=== PATIENT | female | born 1995 | race Two or more races ===

== ENCOUNTER 2017-03-21 15:11 | Inpatient (IN) | payer SELFPAY ==
[~2017-03-21] VITALS: Ht 152.4 cm; Wt 77.1 kg
[~2017-03-21 15:11] MED LIST: ceFAZolin 2GM PREMIX 2 GM/50 ML BAG IV ONE
[2017-03-21] MEDS ORDERED: IV RINGERS,LACTATED 1000ML 1,000 ML IV SCH ×2 (15:27→21:45)
[2017-03-21] MEDS ORDERED: OXYTOCIN 30 UNIT/500 ML PREMIX 500 ML IV PRN ×2 (15:30→18:30)
[2017-03-21] MEDS ORDERED: CITRIC ACID/SODIUM CITRATE 30 ML SOLUTION. PO ONE (15:30)
--- NOTE | 2017-03-21 16:01 | PDOC1 ---
OB - History Hx of Present Care: Good Care Ultrasounds: Normal mid trimester US Obstetrical Complications: None Medical Complications: None Past Family/Social History * Past Medical, Surgical, Family and Obstetric Histories reviewed from chart. Rubella: Immune RPR/VDRL: Negative GBS Status: Negative HBsAG: Negative OB - Chief Complaint & HPI Date of Admission: Date of Admission: Mar 21, 2017 at 15:11 Chief Complaint/History : 2 Para: 1 EGA: 39 Reason for admission: section Indication for : desires repeat Admission Nurse Assessment Rev: Yes Problems: OB - Admission Exam Physical Exam HEENT: Normal Heart: Regular Rate Lungs: Clear Abdomen: Gravid, Non tender, Soft Extremities: Edema Reflexes: Normal Cervical Dilatation: None Effacement: 0% Station: Ballotable Membranes: Intact Heart Rate: Normal Accelerations: Accelerations Present Decelerations: No decelerations Contractions on Admission: None Text A: 39 wks IUP Previous c/s ( unknown scar) P: Admit for repeat c/s. BERRY QUIROGA Jr, MD Mar 21, 2017 16:01
[2017-03-21 16:47] LABS: HEMATOCRIT 39.6 % (36.0-47.0); HEMOGLOBIN 13.2 g/dL (12.0-15.5); RED BLOOD COUNT 4.41 x10^6/uL (3.50-5.40); RED CELL DISTRIBUTION WIDTH 13.3 % (11.5-14.5); WHITE BLOOD COUNT 9.1 x10^3/uL (4.0-11.0)
[2017-03-21] MEDS ORDERED: fentaNYL PF VIAL 100 MCG/2 ML VIAL ONE (16:49)
[2017-03-21] MEDS ORDERED: ONDANSETRON PF 4 MG/2 ML VIAL. ONE (16:50)
[2017-03-21] MEDS ORDERED: OXYTOCIN 10 UNIT/ML VIAL. ONE ×2 (16:50→18:11)
[2017-03-21] MEDS ORDERED: PHENYLEPHRINE 10 MG/ML VIAL. ONE (16:50)
[2017-03-21] MEDS ORDERED: DEXAMETHASONE SOD PHOS 20 MG/5 ML VIAL. ONE (16:50)
[2017-03-21] MEDS ORDERED: METOCLOPRAMIDE HCL 10 MG/2 ML VIAL. ONE (16:50)
[2017-03-21] MEDS ORDERED: MORPHINE PF 5 MG/10 ML VIAL. ONE (16:50)
[2017-03-21] MEDS ORDERED: FAMOTIDINE 20 MG/2 ML VIAL ONE (16:50)
--- NOTE | 2017-03-21 18:28 | PDOC4 ---
OB Operative Note PRE OP DIAGNOSIS: Previoujs C- section POST OP DIAGNOSIS: Previoujs C- section OPERATION PERFORMED: R [facility] Surgeon Dr. Maldonado Anesthesia: Regional (Spinal) Blood Loss 700 ml Specimen placenta and infant OB Findings: Position (Vertex), Sex (Male), (8/9), Weight (pending) Complications none BERRY MALDONADO Jr, MD Mar 21, 2017 18:28
[2017-03-21] MEDS ORDERED: ONDANSETRON PF 4 MG/2 ML VIAL. IV PRN (18:30)
[2017-03-21] MEDS ORDERED: diphenhydrAMINE ORAL ELIXIR 12.5 MG/5 ML ML PO PRN (18:30)
[2017-03-21] MEDS ORDERED: KETOROLAC TROMETHAMINE 30 MG/ML INJ. IV PRN (18:30)
[2017-03-21] MEDS ORDERED: MAG HYDROX/ALUMINUM HYD/SIMETH 30 ML ORAL.SUSP PO PRN (18:30)
[2017-03-21] MEDS ORDERED: ZOLPIDEM 5 MG TABLET. PO PRN (18:30)
[2017-03-21] MEDS ORDERED: 0.9 % SODIUM CHLORIDE 10 ML DISP.SYRIN. IV PRN (18:30)
[2017-03-21] MEDS ORDERED: SIMETHICONE 80 MG TAB.CHEW PO PRN (18:30)
--- NOTE | 2017-03-21 20:53 | OP ---
DATE OF SURGERY: 03/21/2017 PREOPERATIVE DIAGNOSES: 1. A 39 weeks intrauterine . 2. Previous of unknown healing scar. POSTOPERATIVE DIAGNOSES: 1. A 39 weeks intrauterine . 2. Previous of unknown healing scar. PROCEDURE: Repeat low transverse section. SURGEON: Dr. Maldonado. ANESTHESIA: Spinal. ESTIMATED BLOOD LOSS: 800 mL. FINDINGS: Viable male infant, Apgars 8 and 9, weight pending. Three-vessel cord placenta delivered manually intact. SUMMARY: A 22-year-old 2, para 1 at 39 weeks presented for . The patient was counseled on risks, benefits and expectations and voiced clear seed. DESCRIPTION OF PROCEDURE: The patient was taken to surgery suite and placed in dorsal supine position where she was prepped with ChloraPrep and draped in sterile fashion. After adequate anesthesia, the old vertical skin scar was excised using the elliptical approach along with Allis clamps and Bovie cautery. Bovie cautery was then carried down to and through the fascia. The fascia was extended superiorly and inferiorly using Bovie cautery. The abdominal rectus muscles were dissected bluntly at the midline. Peritoneum was grasped with 2 hemostats and entered sharply at the midline. This incision was extended superiorly and inferiorly using Metzenbaum scissors. The Larry ring retractor was placed. Low transverse hysterotomy incision made with scalpel down to the amniotic sac. The hysterotomy incision was extended laterally, superiorly digitally. Amniotomy was performed with Allis clamp, which elicited a large amount of clear fluid. With the aid of fundal pressure, the infant's head was delivered in a smooth atraumatic manner. With additional fundal pressure, the anterior shoulder was delivered followed by the posterior shoulder. Rest of the male was delivered. was suctioned with bulb syringe orally and nasally, umbilical cord was clamped twice and cut. A viable male was handed to waiting nursing staff. Umbilical cord blood was then obtained. Three-vessel cord placenta was delivered manually intact. The uterus exteriorized, cleared of clot and debris with moist lap. Hysterotomy incision was reapproximated using 1-0 Vicryl suture in a running locked fashion. Two [id number] sutures were placed over the right apex of the hysterotomy incision for better hemostasis. Uterus palpated firm. Fallopian tubes and ovaries appeared normal bilaterally. Posterior cul-de-sac was cleared of clot and debris with moist lap. The uterus was returned to the abdomen. Pericolic gutters were cleared of clot and debris with a moist lap. Interceed was placed over in an inverted T-fashion over the hysterotomy incision. The Larry ring retractor was removed. The peritoneum was reapproximated using 1-0 Vicryl suture in running fashion. Fascia was reapproximated using 0 Vicryl suture in a running fashion. Skin was reapproximated using Insorb alicia. The patient tolerated the procedure well and was taken to recovery room in stable condition. Sponge and needle count correct x 3. BERRY MALDONADO MD DR: ANIKET/carolina JOB#: [id number] / [id number]
[2017-03-21 21:00] VITALS: BP 105/62
[2017-03-21 21:33] VITALS: BP 114/73
[2017-03-21 22:30] VITALS: BP 114/60
[2017-03-22 03:00] VITALS: BP 96/55
[2017-03-22 04:29] LABS: BASO % 0 % (0-3); EOS % 0 % (0-3); HEMATOCRIT 31.1 % (36.0-47.0); HEMOGLOBIN 10.4 g/dL (12.0-15.5); LYMPH # 2.4 x10^3/uL (1.0-4.8); LYMPH % 16 % (24-48); MEAN CORPUSCULAR HEMOGLOBIN 30 pg (25-35); MEAN CORPUSCULAR HGB CONC 34 g/dL (31-37); MEAN CORPUSCULAR VOLUME 89 fL (79-100); MONO % 4 % (0-9); NEUT % 80 % (31-73); PLATELET COUNT 189 x10^3/uL (140-400); RED CELL DISTRIBUTION WIDTH 12.8 % (11.5-14.5); WHITE BLOOD COUNT 15.2 x10^3/uL (4.0-11.0)
[2017-03-22 06:08] VITALS: BP 99/51
[2017-03-22 06:19] LABS: RPR REFLEX Non Reactive (Non Reactive)
[2017-03-22] MEDS ORDERED: FERROUS SULFATE 325 MG TABLET. PO SCH (08:00)
[2017-03-22] MEDS: IBUPROFEN 800 MG TABLET. PO PRN ×2 (08:56→20:37)
[2017-03-22] MEDS: oxyCODONE/APAP 5/325 1 TAB TABLET PO PRN ×2 (08:56→17:17)
[2017-03-22 11:20] VITALS: BP 102/62
[2017-03-22] MEDS ORDERED: LIDOCAINE 1% PF 30 ML VIAL. ONE (15:49)
[2017-03-22 16:00] VITALS: BP 112/66
--- NOTE | 2017-03-22 17:05 | PDOC ---
OB Progress Note Date of Service 03/22/17 Time of Evaluation 1700 Notes Pt. feeling well. She reports abd incision opening. Lab Laboratory Tests Test 03/21/17 16:30 03/22/17 04:15 White Blood Count 9.1 x10^3/uL (4.0-11.0) 15.2 x10^3/uL (4.0-11.0) Red Blood Count 4.41 x10^6/uL (3.50-5.40) 3.50 x10^6/uL (3.50-5.40) Hemoglobin 13.2 g/dL (12.0-15.5) 10.4 g/dL (12.0-15.5) Hematocrit 39.6 % (36.0-47.0) 31.1 % (36.0-47.0) Mean Corpuscular Volume 90 fL (79-100) 89 fL (79-100) Mean Corpuscular Hemoglobin 30 pg (25-35) 30 pg (25-35) Mean Corpuscular Hemoglobin Concent 33 g/dL (31-37) 34 g/dL (31-37) Red Cell Distribution Width 13.3 % (11.5-14.5) 12.8 % (11.5-14.5) Platelet Count 203 x10^3/uL (140-400) 189 x10^3/uL (140-400) RPR Titer Additional Testing Non reactive (Non Reactive) Neutrophils (%) (Auto) 80 % (31-73) Lymphocytes (%) (Auto) 16 % (24-48) Monocytes (%) (Auto) 4 % (0-9) Eosinophils (%) (Auto) 0 % (0-3) Basophils (%) (Auto) 0 % (0-3) Neutrophils # (Auto) 12.1 x10^3uL (1.8-7.7) Lymphocytes # (Auto) 2.4 x10^3/uL (1.0-4.8) Monocytes # (Auto) 0.6 x10^3/uL (0.0-1.1) Eosinophils # (Auto) 0.0 x10^3/uL (0.0-0.7) Basophils # (Auto) 0.0 x10^3/uL (0.0-0.2) Laboratory Tests Test 03/22/17 04:15 White Blood Count 15.2 x10^3/uL (4.0-11.0) Red Blood Count 3.50 x10^6/uL (3.50-5.40) Hemoglobin 10.4 g/dL (12.0-15.5) Hematocrit 31.1 % (36.0-47.0) Mean Corpuscular Volume 89 fL (79-100) Mean Corpuscular Hemoglobin 30 pg (25-35) Mean Corpuscular Hemoglobin Concent 34 g/dL (31-37) Red Cell Distribution Width 12.8 % (11.5-14.5) Platelet Count 189 x10^3/uL (140-400) Neutrophils (%) (Auto) 80 % (31-73) Lymphocytes (%) (Auto) 16 % (24-48) Monocytes (%) (Auto) 4 % (0-9) Eosinophils (%) (Auto) 0 % (0-3) Basophils (%) (Auto) 0 % (0-3) Neutrophils # (Auto) 12.1 x10^3uL (1.8-7.7) Lymphocytes # (Auto) 2.4 x10^3/uL (1.0-4.8) Monocytes # (Auto) 0.6 x10^3/uL (0.0-1.1) Eosinophils # (Auto) 0.0 x10^3/uL (0.0-0.7) Basophils # (Auto) 0.0 x10^3/uL (0.0-0.2) Medications Current Medications Oxytocin/Sodium Chloride 500 ml @ 0 mls/hr CONT PRN PRN IV Post delivery bleeding; Start 03/21/17 at 15:30; Stop 03/22/17 at 08:54; Status DC Ringer's Solution 1,000 ml @ 1,000 mls/hr Q1H IV Last administered on t 16:56; Start 03/21/17 at 15:27; Stop 03/21/17 at 16:26; Status DC Cefazolin Sodium/ Dextrose 50 ml @ 100 mls/hr 1X ONCE IV ; Start 03/21/17 at 17 :30; Stop 03/22/17 at 08:54; Status DC Citric Acid/ Sodium Citrate (Bicitra) 30 ml 1X ONCE PO Last administered on t 16:56; Start 03/21/17 at 15:30; Stop 03/22/17 at 08:54; Status DC Fentanyl Citrate (Fentanyl 2ml Vial) 100 mcg STK-MED ONCE .ROUTE ; Start at 16:49; Stop 03/22/17 at 08:54; Status DC Dexamethasone Sodium Phosphate (Decadron) 20 mg STK-MED ONCE .ROUTE ; Start 03/21 at 16:50; Stop 03/22/17 at 08:54; Status DC Famotidine (Pepcid) 20 mg STK-MED ONCE .ROUTE ; Start 03/21/17 at 16:50; Stop 05/29 at 08:54; Status DC Metoclopramide HCl (Reglan) 10 mg STK-MED ONCE .ROUTE ; Start 03/21/17 at 16:50; Stop 03/22/17 at 08:54; Status DC Ondansetron HCl (Zofran) 4 mg STK-MED ONCE .ROUTE ; Start 03/21/17 at 16:50; Stop 03/22/17 at 08:54; Status DC Oxytocin (Pitocin) 10 unit STK-MED ONCE .ROUTE ; Start 03/21/17 at 16:50; Stop at 08:54; Status DC Ephedrine Sulfate (Akovaz) 50 mg STK-MED ONCE .ROUTE ; Start 03/21/17 at 16:50; Stop 03/22/17 at 08:54; Status DC Phenylephrine HCl (Hever-Synephrine Inj) 10 mg STK-MED ONCE .ROUTE ; Start at 16:50; Stop 03/22/17 at 08:54; Status DC Morphine Sulfate (Morphine Preservative Free) 5 mg STK-MED ONCE .ROUTE ; Start 03/21/17 at 16:50; Stop 03/22/17 at 08:54; Status DC Oxytocin (Pitocin) 10 unit STK-MED ONCE .ROUTE ; Start 03/21/17 at 18:11; Stop at 08:54; Status DC Sodium Chloride (Normal Saline Flush) 3 ml QSHIFT PRN IV AFTER MEDS AND BLOOD DRAWS; Start 03/21/17 at 18:30; Stop 03/22/17 at 08:54; Status DC Oxytocin/Sodium Chloride 500 ml @ 125 mls/hr CONT PRN IV EXCESSIVE POST- BLEEDING; Start 03/21/17 at 18:30; Stop 03/22/17 at 02:29; Status DC Ibuprofen (Motrin) 800 mg PRN Q8HRS PRN PO INFLAMMATION Last administered on 08:56; Start 03/21/17 at 18:30 Ondansetron HCl (Zofran) 4 mg PRN Q6HRS PRN IV NAUSEA/VOMITING; Start 03/21/17 at 18:30; Stop 03/22/17 at 08:54; Status DC Docusate Sodium (Colace) 100 mg PRN BID PRN PO CONSTIPATION; Start 03/21/17 at 18:30 Al Hydroxide/Mg Hydroxide (Mylanta Plus Xs) 30 ml PRN Q4HRS PRN PO HEARTBURN / GAS; Start 03/21/17 at 18:30 Simethicone (Gas-X) 80 mg PRN AFTMEALHC PRN PO GAS / BLOATING; Start 03/21/17 at 18:30 Diphenhydramine HCl (Benadryl Oral Elixir) 12.5 mg PRN Q6HRS PRN PO ITCHING; Start 03/21/17 at 18:30 Ferrous Sulfate (Feosol) 325 mg BIDWMEALS PO ; Start 03/22/17 at 08:00; Stop 05/29 at 08:54; Status DC Zolpidem Tartrate (Ambien) 5 mg PRN QHS PRN PO INSOMNIA, MAY REPEAT X1; Start 03/21/17 at 18:30 Oxycodone/ Acetaminophen (Percocet 5/325) 2 tab PRN Q4HRS PRN PO MODERATE PAIN , SEVERE PAIN Last administered on 03/22/17 08:56; Start 03/21/17 at 18:30 Ketorolac Tromethamine (Toradol) 30 mg PRN Q6HRS PRN IV PAIN Last administered on 03/21/17 20:21; Start 03/21/17 at 18:30; Stop 03/22/17 at 08:54; Status DC Ringer's Solution 1,000 ml @ 125 mls/hr Q8H IV Last administered on 8/9/17at 21:46; Start 03/21/17 at 21:45; Stop 03/22/17 at 08:54; Status DC Cefazolin Sodium/ Dextrose (Ancef 2gm Premix) 2 gm STK-MED ONCE IV ; Start at 12:00; Stop 03/22/17 at 10:14; Status DC Lidocaine HCl 30 ml STK-MED ONCE .ROUTE ; Start 03/22/17 at 15:49; Stop at 15:54; Status DC Exam Abd incision site: opening of 50%. Skin reapproximated with alicia after local anesthetic in sterile manner. Assessment POD#1 s/p repeat c/s Plan of Care: Continue current Tx, Mgmt BERRY QUIROGA Jr, MD Mar 22, 2017 17:04
[2017-03-22] MEDS: DOCUSATE SODIUM 100 MG CAPSULE. PO PRN (17:16)
[2017-03-22 19:00] VITALS: BP 97/53
[2017-03-22 23:00] VITALS: BP 105/65
[2017-03-23 06:35] VITALS: BP 99/54
[2017-03-23] MEDS: IBUPROFEN 800 MG TABLET. PO PRN ×2 (08:34→17:12)
[2017-03-23] MEDS: DOCUSATE SODIUM 100 MG CAPSULE. PO PRN (08:34)
[2017-03-23] MEDS: oxyCODONE/APAP 5/325 1 TAB TABLET PO PRN ×3 (08:41→21:41)
[2017-03-23 09:47] VITALS: BP 108/62
[2017-03-23 14:50] VITALS: BP 99/66
--- NOTE | 2017-03-23 15:25 | PDOC ---
OB Progress Note Date of Service 03/23/17 Time of Evaluation 1520 Notes Pt. feeling well. Lab Laboratory Tests Test 03/21/17 16:30 03/22/17 04:15 White Blood Count 9.1 x10^3/uL (4.0-11.0) 15.2 x10^3/uL (4.0-11.0) Red Blood Count 4.41 x10^6/uL (3.50-5.40) 3.50 x10^6/uL (3.50-5.40) Hemoglobin 13.2 g/dL (12.0-15.5) 10.4 g/dL (12.0-15.5) Hematocrit 39.6 % (36.0-47.0) 31.1 % (36.0-47.0) Mean Corpuscular Volume 90 fL (79-100) 89 fL (79-100) Mean Corpuscular Hemoglobin 30 pg (25-35) 30 pg (25-35) Mean Corpuscular Hemoglobin Concent 33 g/dL (31-37) 34 g/dL (31-37) Red Cell Distribution Width 13.3 % (11.5-14.5) 12.8 % (11.5-14.5) Platelet Count 203 x10^3/uL (140-400) 189 x10^3/uL (140-400) RPR Titer Additional Testing Non reactive (Non Reactive) Neutrophils (%) (Auto) 80 % (31-73) Lymphocytes (%) (Auto) 16 % (24-48) Monocytes (%) (Auto) 4 % (0-9) Eosinophils (%) (Auto) 0 % (0-3) Basophils (%) (Auto) 0 % (0-3) Neutrophils # (Auto) 12.1 x10^3uL (1.8-7.7) Lymphocytes # (Auto) 2.4 x10^3/uL (1.0-4.8) Monocytes # (Auto) 0.6 x10^3/uL (0.0-1.1) Eosinophils # (Auto) 0.0 x10^3/uL (0.0-0.7) Basophils # (Auto) 0.0 x10^3/uL (0.0-0.2) Medications Current Medications Oxytocin/Sodium Chloride 500 ml @ 0 mls/hr CONT PRN PRN IV Post delivery bleeding; Start 03/21/17 at 15:30; Stop 03/22/17 at 08:54; Status DC Ringer's Solution 1,000 ml @ 1,000 mls/hr Q1H IV Last administered on 16:56; Start 03/21/17 at 15:27; Stop 03/21/17 at 16:26; Status DC Cefazolin Sodium/ Dextrose 50 ml @ 100 mls/hr 1X ONCE IV ; Start 03/21/17 at 17 :30; Stop 03/22/17 at 08:54; Status DC Citric Acid/ Sodium Citrate (Bicitra) 30 ml 1X ONCE PO Last administered on 16:56; Start 03/21/17 at 15:30; Stop 03/22/17 at 08:54; Status DC Fentanyl Citrate (Fentanyl 2ml Vial) 100 mcg STK-MED ONCE .ROUTE ; Start at 16:49; Stop 03/22/17 at 08:54; Status DC Dexamethasone Sodium Phosphate (Decadron) 20 mg STK-MED ONCE .ROUTE ; Start 03/21 at 16:50; Stop 03/22/17 at 08:54; Status DC Famotidine (Pepcid) 20 mg STK-MED ONCE .ROUTE ; Start 03/21/17 at 16:50; Stop 05/29 at 08:54; Status DC Metoclopramide HCl (Reglan) 10 mg STK-MED ONCE .ROUTE ; Start 03/21/17 at 16:50; Stop 03/22/17 at 08:54; Status DC Ondansetron HCl (Zofran) 4 mg STK-MED ONCE .ROUTE ; Start 03/21/17 at 16:50; Stop 03/22/17 at 08:54; Status DC Oxytocin (Pitocin) 10 unit STK-MED ONCE .ROUTE ; Start 03/21/17 at 16:50; Stop at 08:54; Status DC Ephedrine Sulfate (Akovaz) 50 mg STK-MED ONCE .ROUTE ; Start 03/21/17 at 16:50; Stop 03/22/17 at 08:54; Status DC Phenylephrine HCl (Hever-Synephrine Inj) 10 mg STK-MED ONCE .ROUTE ; Start at 16:50; Stop 03/22/17 at 08:54; Status DC Morphine Sulfate (Morphine Preservative Free) 5 mg STK-MED ONCE .ROUTE ; Start 03/21/17 at 16:50; Stop 03/22/17 at 08:54; Status DC Oxytocin (Pitocin) 10 unit STK-MED ONCE .ROUTE ; Start 03/21/17 at 18:11; Stop at 18:03; Status DC Sodium Chloride (Normal Saline Flush) 3 ml QSHIFT PRN IV AFTER MEDS AND BLOOD DRAWS; Start 03/21/17 at 18:30; Stop 03/22/17 at 08:54; Status DC Oxytocin/Sodium Chloride 500 ml @ 125 mls/hr CONT PRN IV EXCESSIVE POST- BLEEDING; Start 03/21/17 at 18:30; Stop 03/22/17 at 02:29; Status DC Ibuprofen (Motrin) 800 mg PRN Q8HRS PRN PO INFLAMMATION Last administered on 08:34; Start 03/21/17 at 18:30 Ondansetron HCl (Zofran) 4 mg PRN Q6HRS PRN IV NAUSEA/VOMITING; Start 03/21/17 at 18:30; Stop 03/22/17 at 08:54; Status DC Docusate Sodium (Colace) 100 mg PRN BID PRN PO CONSTIPATION Last administered on 03/23/17 08:34; Start 03/21/17 at 18:30 Al Hydroxide/Mg Hydroxide (Mylanta Plus Xs) 30 ml PRN Q4HRS PRN PO HEARTBURN / GAS; Start 03/21/17 at 18:30 Simethicone (Gas-X) 80 mg PRN AFTMEALHC PRN PO GAS / BLOATING Last administered on 03/22/17 20:37; Start 03/21/17 at 18:30 Diphenhydramine HCl (Benadryl Oral Elixir) 12.5 mg PRN Q6HRS PRN PO ITCHING; Start 03/21/17 at 18:30 Ferrous Sulfate (Feosol) 325 mg BIDWMEALS PO ; Start 03/22/17 at 08:00; Stop 05/29 at 08:54; Status DC Zolpidem Tartrate (Ambien) 5 mg PRN QHS PRN PO INSOMNIA, MAY REPEAT X1; Start 03/21/17 at 18:30 Oxycodone/ Acetaminophen (Percocet 5/325) 2 tab PRN Q4HRS PRN PO MODERATE PAIN , SEVERE PAIN Last administered on 03/23/17 08:41; Start 03/21/17 at 18:30 Ketorolac Tromethamine (Toradol) 30 mg PRN Q6HRS PRN IV PAIN Last administered on 03/21/17 20:21; Start 03/21/17 at 18:30; Stop 03/22/17 at 08:54; Status DC Ringer's Solution 1,000 ml @ 125 mls/hr Q8H IV Last administered on 03/21/17 21:46; Start 03/21/17 at 21:45; Stop 03/22/17 at 08:54; Status DC Cefazolin Sodium/ Dextrose (Ancef 2gm Premix) 2 gm STK-MED ONCE IV ; Start at 12:00; Stop 03/22/17 at 10:14; Status DC Lidocaine HCl 30 ml STK-MED ONCE .ROUTE ; Start 03/22/17 at 15:49; Stop at 18:03; Status DC Exam Abd: soft, mild tenderness, fundus firm INcision : intact and dry. Assessment POD#2 s/p repeat c/s Plan of Care: Continue current Tx, Mgmt BERRY QUIROGA Jr, MD Mar 23, 2017 15:24
[2017-03-23 17:15] VITALS: BP 111/71
[2017-03-23 21:40] VITALS: BP 102/52
[2017-03-24 04:00] VITALS: BP 88/42
[2017-03-24] MEDS: IBUPROFEN 800 MG TABLET. PO PRN ×2 (04:03→13:01)
[2017-03-24] MEDS: oxyCODONE/APAP 5/325 1 TAB TABLET PO PRN ×2 (04:03→13:02)
--- NOTE | 2017-03-24 18:08 | PDOC ---
OB Progress Note Date of Service 03/24/17 Time of Evaluation 1805 Notes PT. feeling well. No complaints. Medications Current Medications Oxytocin/Sodium Chloride 500 ml @ 0 mls/hr CONT PRN PRN IV Post delivery bleeding; Start 03/21/17 at 15:30; Stop 03/22/17 at 08:54; Status DC Ringer's Solution 1,000 ml @ 1,000 mls/hr Q1H IV Last administered on 16:56; Start 03/21/17 at 15:27; Stop 03/21/17 at 16:26; Status DC Cefazolin Sodium/ Dextrose 50 ml @ 100 mls/hr 1X ONCE IV ; Start 03/21/17 at 17 :30; Stop 03/22/17 at 08:54; Status DC Citric Acid/ Sodium Citrate (Bicitra) 30 ml 1X ONCE PO Last administered on 16:56; Start 03/21/17 at 15:30; Stop 03/22/17 at 08:54; Status DC Fentanyl Citrate (Fentanyl 2ml Vial) 100 mcg STK-MED ONCE .ROUTE ; Start at 16:49; Stop 03/22/17 at 08:54; Status DC Dexamethasone Sodium Phosphate (Decadron) 20 mg STK-MED ONCE .ROUTE ; Start 03/21 at 16:50; Stop 03/22/17 at 08:54; Status DC Famotidine (Pepcid) 20 mg STK-MED ONCE .ROUTE ; Start 03/21/17 at 16:50; Stop 05/29 at 08:54; Status DC Metoclopramide HCl (Reglan) 10 mg STK-MED ONCE .ROUTE ; Start 03/21/17 at 16:50; Stop 03/22/17 at 08:54; Status DC Ondansetron HCl (Zofran) 4 mg STK-MED ONCE .ROUTE ; Start 03/21/17 at 16:50; Stop 03/22/17 at 08:54; Status DC Oxytocin (Pitocin) 10 unit STK-MED ONCE .ROUTE ; Start 03/21/17 at 16:50; Stop at 08:54; Status DC Ephedrine Sulfate (Akovaz) 50 mg STK-MED ONCE .ROUTE ; Start 03/21/17 at 16:50; Stop 03/22/17 at 08:54; Status DC Phenylephrine HCl (Hever-Synephrine Inj) 10 mg STK-MED ONCE .ROUTE ; Start at 16:50; Stop 03/22/17 at 08:54; Status DC Morphine Sulfate (Morphine Preservative Free) 5 mg STK-MED ONCE .ROUTE ; Start 03/21/17 at 16:50; Stop 03/22/17 at 08:54; Status DC Oxytocin (Pitocin) 10 unit STK-MED ONCE .ROUTE ; Start 03/21/17 at 18:11; Stop at 18:03; Status DC Sodium Chloride (Normal Saline Flush) 3 ml QSHIFT PRN IV AFTER MEDS AND BLOOD DRAWS; Start 03/21/17 at 18:30; Stop 03/22/17 at 08:54; Status DC Oxytocin/Sodium Chloride 500 ml @ 125 mls/hr CONT PRN IV EXCESSIVE POST- BLEEDING; Start 03/21/17 at 18:30; Stop 03/22/17 at 02:29; Status DC Ibuprofen (Motrin) 800 mg PRN Q8HRS PRN PO INFLAMMATION Last administered on 13:01; Start 03/21/17 at 18:30 Ondansetron HCl (Zofran) 4 mg PRN Q6HRS PRN IV NAUSEA/VOMITING; Start 03/21/17 at 18:30; Stop 03/22/17 at 08:54; Status DC Docusate Sodium (Colace) 100 mg PRN BID PRN PO CONSTIPATION Last administered on 03/23/17 08:34; Start 03/21/17 at 18:30 Al Hydroxide/Mg Hydroxide (Mylanta Plus Xs) 30 ml PRN Q4HRS PRN PO HEARTBURN / GAS; Start 03/21/17 at 18:30 Simethicone (Gas-X) 80 mg PRN AFTMEALHC PRN PO GAS / BLOATING Last administered on 03/22/17 20:37; Start 03/21/17 at 18:30 Diphenhydramine HCl (Benadryl Oral Elixir) 12.5 mg PRN Q6HRS PRN PO ITCHING; Start 03/21/17 at 18:30 Ferrous Sulfate (Feosol) 325 mg BIDWMEALS PO ; Start 03/22/17 at 08:00; Stop 05/29 at 08:54; Status DC Zolpidem Tartrate (Ambien) 5 mg PRN QHS PRN PO INSOMNIA, MAY REPEAT X1; Start 03/21/17 at 18:30 Oxycodone/ Acetaminophen (Percocet 5/325) 2 tab PRN Q4HRS PRN PO MODERATE PAIN , SEVERE PAIN Last administered on 03/24/17 13:02; Start 03/21/17 at 18:30 Ketorolac Tromethamine (Toradol) 30 mg PRN Q6HRS PRN IV PAIN Last administered on 03/21/17 20:21; Start 03/21/17 at 18:30; Stop 03/22/17 at 08:54; Status DC Ringer's Solution 1,000 ml @ 125 mls/hr Q8H IV Last administered on 03/21/17 21:46; Start 03/21/17 at 21:45; Stop 03/22/17 at 08:54; Status DC Cefazolin Sodium/ Dextrose (Ancef 2gm Premix) 2 gm STK-MED ONCE IV ; Start at 12:00; Stop 03/22/17 at 10:14; Status DC Lidocaine HCl 30 ml STK-MED ONCE .ROUTE ; Start 03/22/17 at 15:49; Stop at 18:03; Status DC Exam Abd: soft, non tender, fundus firm Incision site: clean, dry and intact. Dez intact Assessment POD# 3 s/p c/s Plan of Care: See new orders (D/ c home.) BERRY QUIROGA Jr, MD Mar 24, 2017 18:08
--- NOTE | 2017-03-24 18:09 | DISCH ---
DISCHARGE INSTRUCTIONS Condition on Discharge Condition on Discharge: Stable Activity After Discharge Activity Instructions for Disc: Activity as tolerated Lifting Instructions after Dis: No heavy lifting Driving Instructions after Dis: Do not drive today Diet after Discharge Diet after Discharge: Regular Contacting the DRBrit after DC Call your doctor for: Concerns you may have Follow-Up Follow up with: Dr. Maldonado in 1 week. BERRY MALDONADO Jr, MD Mar 24, 2017 18:09
[2017-03-24] MEDS ORDERED: OXYC-323 PO (18:11)
[2017-03-24] MEDS ORDERED: DOCU-109 PO (18:11)
[2017-03-24] MEDS ORDERED: IBUP-1060 PO (18:11)
== END 2017-03-24 18:45 | disposition home or self-care (01) | DRG 766 ==
LOC: 3 SO LND 15:11 → OBSVTOIN 15:11 → 3 SO LND 21:12
PROVIDERS: ADMIT Obstetrics & Gynecology; ATTEND Obstetrics & Gynecology
PROC: 10D00Z1 Extraction of Products of Conception, Low, Open Approach (ICD-10-PCS; principal; 2017-03-21)
DX: O34.211 Maternal care for low transverse scar from previous cesarean delivery (principal); Z37.0 Single live birth; Z3A.39 39 weeks gestation of pregnancy
CPT/HCPCS: 36415; 85027; 86593; 86850; 86900; 86901; J0690; J1100; J1885; J2270; J2405; J2590; J2765; J3010; J7120; S0028

== ENCOUNTER → 2020-06-07 | Outpatient (CLI) | payer SELFPAY ==
[~2020-06-07] MED LIST changes: +DOCU-109 PO; +IBUP-1060 PO; +OXYC1TAB15 PO; +PREN-48 PO; -ceFAZolin 2GM PREMIX 2 GM/50 ML BAG IV ONE
== END ==
LOC: LAB 14:38
PROVIDERS: ATTEND Obstetrics & Gynecology
DX: Z01.812 Encounter for preprocedural laboratory examination (principal); Z20.828 Contact with and (suspected) exposure to other viral communicable diseases
CPT/HCPCS: U0003